=== PATIENT | male | born 1955 | race Caucasian/White ===

== ENCOUNTER 2020-03-10 18:55 | Inpatient (IN) | payer MEDICARE ==
[~2020-03-10] VITALS: Ht 190.5 cm; Wt 124.3 kg
--- NOTE | ~2020-03-10 | EKG ---
[place] [address] ELECTROCARDIOGRAM REPORT Name: YU AGUILAR Room: [address] IN [facility].#: [id number] Admission: 03/10/20 Attend Phys: Junito Zapata Discharge: Date of : 53 Date of Service: 03/10/201943 Report #: [id number] THIS REPORT FOR: //name// [facility] ED Test Date: 2020-03-10 Test Time: 19:44:28 Pat Name: YU AGUILAR Department: Room: [facility] Gender: M Manager Mining: RAHUL : 1955 Requested By: Aashish Wayne Order Number: [id number] MD: Measurements Intervals [place] Rate: 116 P: 68 DE: 185 QRS: 35 QRSD: 96 T: 65 QT: 319 QTc: 444 Interpretive Statements Sinus tachycardia Compared to ECG 05/24/2008 20:01:51 Sinus rhythm no longer present [email or web address] By: 43 43 Epiphany EpiphanyMD /EPI
[2020-03-10 19:00] VITALS: BP 136/77
--- NOTE | 2020-03-10 20:00 | NUR ---
PTS HEARING AIDS X2 PLACED IN A CUP WITH NAME LABEL ON CUP, CELLPONE AND GLASSES ALL PLACED IN A ZIP LOCK BAG AND PLACED WITH BELONGINGS.
[2020-03-10 20:14] LABS: RDW-CV 13.7 % (10.5-14.5)
[2020-03-10 20:19] LABS: HEMOGLOBIN 16.9 gm/dL (14.0-18.0); MCH 28.9 pg (26.0-34.0); MCHC 33.1 g/dL (28.0-37.0); MCV 87.5 fL (80.0-100.0); MPV 8.7 fl. (7.2-11.1); NUCLEATED RBCS 0 /100WBC; PLATELET COUNT* 235 thou/uL (150-400); RBC 5.83 mil/uL (4.50-6.00); WBC 15.9 thou/uL (4.0-11.0)
[2020-03-10 20:21] LABS: CREATININE 1.4 mg/dL (0.6-1.3); POTASSIUM 3.9 mmol/L (3.5-5.1)
[2020-03-10 20:26] LABS: APTT 26.1 Seconds (25.0-31.3); PROTIME 10.7 Seconds (9.20-11.50)
[2020-03-10 20:32] LABS: TOTAL PROTEIN 8.6 g/dL (6.4-8.2)
[2020-03-10 20:49] LABS: BE -3.7 mmol/L (-2 to +3); PO2 105.9 mmHg (75.0-100.0)
[2020-03-10 20:55] LABS: PCO2 55.3 mmHg (35.0-45.0); pH 7.259 (7.340-7.450)
--- NOTE | 2020-03-10 21:52 | NUR ---
UP DATED ON CONDITION. SHE IS AWARE OF VISITATION POLICY AND WAS INSTRUCTED TO CALL WHEN SHE WANTED TO CHECK ON HIM WIFES NAME IS YAIR AGUILAR [phone] [place] AWARE THAT HE WAS COVID + AND HAS GONE HOME TO [place] SELF. INFORMED WOULD CALL IF ANY CHANGES
[2020-03-10 22:04] VITALS: BP 112/69
--- NOTE | 2020-03-10 22:08 | NUR ---
PT HAS COARSE BREATH SOUNDS BILATERALLY AND DIM IN THE BASES. 2 RADIAL PULSES AND 1+ PEDAL PULSES. NGT TO R NARES INTACT AND SECURED AT 60 AT NOSE. WITH BROWN SECRETIONS NOTED. NGT CONNECTED TO LIS. 7.5 ETT INATCT AND SECURED AT 24 AT THE LIP. R JUGULAR TRIPLE LUMEN LINE INTACT. IV TO RIGHT AC INTACT WITH NO REDNESS OR SWELLING NOTED AT THIS TIME. RAMON INTACT AND PATENT DRAINING YELLOW URINE TO BEDSIDE BAG. PT RESTING COMFORTABLY AT THIS TIME.
--- NOTE | 2020-03-10 22:13 | NUR ---
CALLED WITH LIST OF MEDICATIONS, MED REC UPDATED
[2020-03-10] MEDS ORDERED: CLOPIDOGREL75 MG PO (22:14)
[2020-03-10] MEDS ORDERED: LIPITOR40 MG PO (22:14)
[2020-03-10] MEDS ORDERED: CARVEDILOL12.5 MG PO (22:14)
[2020-03-10] MEDS ORDERED: ISOSORBIDE MONO30 M1 PO (22:17)
[2020-03-10] MEDS ORDERED: ASA81BEC PO (22:17)
[2020-03-10 22:23] LABS: ABSOLUTE EOSINOPHILS 0.6 thou/uL (0.0-0.7); ABSOLUTE LYMPHOCYTES 8.3 thou/uL (0.8-5.3); ABSOLUTE MONOCYTES 0.8 thou/uL (0.0-1.2)
[2020-03-10 22:24] LABS: PLATELET ESTIMATE ADEQUATE
[2020-03-11] VITALS (27 sets, daily range): BP systolic 112–141; BP diastolic 56–91
--- NOTE | 2020-03-11 01:36 | NUR ---
NOTIFIED OF PT ICU ROOM NUMBER
--- NOTE | 2020-03-11 05:51 | NUR ---
PT ADMITTED TO ICU AT 0200 FOR RESPIRATORY ARREST IN ED. PT INTUBATED AND SEDATED WITH PROPOFOL DRIP. PT PLACED IN BILATERAL WRIST RESTRAINTS TO MAINTAIN ET TUBE, CENTRAL LINE AND RAMON CATHETER. PT AROUSES TO TOUCH AND ATTEMPTS TO SELF EXTUBATE. PT SINUS RHYTHM DURING SHIFT WITH HEART RATE AND BLOOD PRESSURES WITHIN NORMAL LIMITS. O2 SAT MAINTAINED > 94% ON FIOS 100%. NO ACUTE CHANGES DURING SHIFT, WILL CONTINUE TO MONITOR CLOSELY.
[2020-03-11 08:49] LABS: BE -2.1 mmol/L (-2 to +3); PCO2 37.1 mmHg (35.0-45.0); pH 7.396 (7.340-7.450)
[2020-03-11 10:38] LABS: ABSOLUTE BASOPHILS 0.1 thou/uL (0.0-0.2); ABSOLUTE LYMPHOCYTES 1.9 thou/uL (0.8-5.3); ABSOLUTE MONOCYTES 0.4 thou/uL (0.0-1.2); ABSOLUTE NEUTROPHILS 12.2 thou/uL (1.6-8.1); BASOPHILS 0.5 %; HEMATOCRIT 40.4 % (42.0-52.0); LYMPHOCYTES 12.9 %; MCH 28.5 pg (26.0-34.0); MCHC 33.5 g/dL (28.0-37.0); MCV 84.9 fL (80.0-100.0); MPV 8.3 fl. (7.2-11.1); NUCLEATED RBCS 0 /100WBC; PLATELET COUNT* 173 thou/uL (150-400); POLYS 83.6 %; RBC 4.76 mil/uL (4.50-6.00); RDW-CV 14.1 % (10.5-14.5); WBC 14.6 thou/uL (4.0-11.0)
[2020-03-11 10:44] LABS: HEMOGLOBIN 13.5 gm/dL (14.0-18.0)
[2020-03-11 10:46] LABS: CALCIUM 8.5 mg/dL (8.5-10.1); CREATININE 1.1 mg/dL (0.6-1.3); POTASSIUM 3.9 mmol/L (3.5-5.1)
--- NOTE | 2020-03-11 13:27 | NUR ---
ICU rounds: Covid positive. On Vent, fio2 at 100%. CM spoke with Pt's via phone. Pt tested positive during this hospitalization, tested negative toay. Per . Pt is A&O. Normally active and independent. No DME. No hx of HH or SNF. Pt does not have a PCP, but [facility] CM following.
[2020-03-12] VITALS (21 sets, daily range): BP systolic 111–193; BP diastolic 54–114
[2020-03-12 04:53] LABS: BE -5.6 mmol/L (-2 to +3); PCO2 33.6 mmHg (35.0-45.0); pH 7.365 (7.340-7.450)
[2020-03-12 04:57] LABS: PO2 190.8 mmHg (75.0-100.0)
[2020-03-12 05:12] LABS: HEMATOCRIT 37.7 % (42.0-52.0); HEMOGLOBIN 12.7 gm/dL (14.0-18.0); MCH 28.5 pg (26.0-34.0); MCHC 33.6 g/dL (28.0-37.0); MCV 84.7 fL (80.0-100.0); MPV 8.5 fl. (7.2-11.1); RBC 4.46 mil/uL (4.50-6.00); RDW-CV 13.2 % (10.5-14.5); WBC 16.3 thou/uL (4.0-11.0)
[2020-03-12 05:43] LABS: ALBUMIN 2.7 g/dL (3.4-5.0); CALCIUM 7.9 mg/dL (8.5-10.1); MAGNESIUM 2.5 mg/dL (1.8-2.4); POTASSIUM 3.8 mmol/L (3.5-5.1); TOTAL BILIRUBIN 0.6 mg/dL (<0.1-1.0); TOTAL PROTEIN 6.5 g/dL (6.4-8.2)
--- NOTE | 2020-03-12 06:31 | NUR ---
ASSUMED CARE AT 1900H, ON VENT AT 60% AND TOLERATED. ON PROPOFOL AT 40MICS AND FOLLOWS COMMAND. NO DISTRESS AND NO FEVER NOTED. REORIENT PT. BED CHANGED TO BARIATRIC BED. UPDATE GIVEN TO . CONTINUE MONITORING AND TOWARDS GOALS. FIO2 DECREASE TO 50%.
--- NOTE | 2020-03-12 10:06 | NUR ---
Continue tube feed at 40ml/hr goal of vital high protein. If able to increase water flushes to 150-240ml every 6hr, then add 1 packet of beneprotein powder in each flush
[2020-03-12 12:34] LABS: BE -2.3 mmol/L (-2 to +3); PCO2 39.1 mmHg (35.0-45.0); PO2 116.1 mmHg (75.0-100.0); pH 7.379 (7.340-7.450)
--- NOTE | 2020-03-12 14:04 | NUR ---
ICU rounds: covid positive. Intubated and sedated. IV steroids and abx. Tube feeds.
--- NOTE | 2020-03-12 18:42 | NUR ---
DR. MIGUEL NOTIFIED OF PTS RAPID IMPROVMENT IN RESPIRATORY STATUS. ORDERED GIVEN FOR BREATHING TRIAL. PASS DID VERY WELL. DR NOTIFIED. ORDER GIVEN TO EXTUABTE PT. PT EXTUBATED @1245. PT SOB AROUND 1750. DR. ZAIDI NOTIFIED. ORDER GIVEN FOR XOPENEX. PT STATED TREATMENT HELPED.
[2020-03-12 23:06] LABS: GLYCOHEMOGLOBIN (HGB A1C) 5.7 % (4.8-5.6)
[2020-03-13] VITALS (9 sets, daily range): BP systolic 135–161; BP diastolic 70–86
--- NOTE | 2020-03-13 04:10 | NUR ---
ASSUMED CARE AT 1900H, ON NC AT 4LPM AND TOLERATED. SEEN ON BED WITH NAUSEA, NOT RELEAVED BY MED AND OTHER INTERVENTIONS. HIMS INFORMED WITH ORDERS MADE AND CARRIED OUT. NO ORE NAUSE AND VOMITING, BP WITHIN NORMAL. PT DON'T WANT SLEEPING PILL OR ANXIETY MED, AWAKE THE WHOLE NIGHT. NO DISTRESS AND NO FEVER NOTED. TRANSFERED TO RECLAINING CHAIR LAST NIGHT. UPDATE GIVEN TO . CONTINUE MONITORING AND TOWARDS GOALS.
[2020-03-13 04:30] LABS: BE 0.1 mmol/L (-2 to +3); PCO2 36.5 mmHg (35.0-45.0); pH 7.435 (7.340-7.450)
[2020-03-13 04:32] LABS: PO2 147.2 mmHg (75.0-100.0)
[2020-03-13 05:04] LABS: HEMATOCRIT 40.7 % (42.0-52.0); HEMOGLOBIN 13.8 gm/dL (14.0-18.0); MCH 28.5 pg (26.0-34.0); MCHC 33.8 g/dL (28.0-37.0); MCV 84.4 fL (80.0-100.0); MPV 8.6 fl. (7.2-11.1); RBC 4.83 mil/uL (4.50-6.00); RDW-CV 13.8 % (10.5-14.5)
[2020-03-13 05:23] LABS: ALBUMIN 2.9 g/dL (3.4-5.0); CALCIUM 8.4 mg/dL (8.5-10.1); MAGNESIUM 2.4 mg/dL (1.8-2.4); TOTAL BILIRUBIN 0.8 mg/dL (<0.1-1.0); TOTAL PROTEIN 6.7 g/dL (6.4-8.2)
--- NOTE | 2020-03-13 12:18 | NUR ---
ICU rounds: Extubated yesterday. Doing well. On 2L o2. Up to chair. Covid positive. Tele status
--- NOTE | 2020-03-13 13:45 | NUR ---
transfer from icu to [facility] rm 112 telephone report given prior to arrival patient transferred via good condition with personal belongigns
--- NOTE | 2020-03-13 14:32 | NUR ---
PT SAT IN A RECLINER THIS WHOLE MORNIING, O2 SUPPORT DOWN TO 2L/MIN. VSS TOLERATING WELL. NO NAUSEA/VOMITING, ATE 30-40% OF HIS MEALS. RAMON'S CATH TAKEN OUT AT 1230. REPORT GIVEN TO GEOFFREY GOMEZ.
--- NOTE | 2020-03-13 18:00 | NUR ---
patient up in chair oxygen off o2 sat 96% ra patient instructed to notify nurse if soa call light within reach
[2020-03-14] VITALS: BP 132/76
[2020-03-14 03:57] LABS: HEMOGLOBIN 13.2 gm/dL (14.0-18.0); MCH 28.5 pg (26.0-34.0); MCHC 33.9 g/dL (28.0-37.0); MPV 8.9 fl. (7.2-11.1); RBC 4.64 mil/uL (4.50-6.00); RDW-CV 13.5 % (10.5-14.5); WBC 13.1 thou/uL (4.0-11.0)
[2020-03-14 04:04] VITALS: BP 163/92
[2020-03-14 04:08] LABS: CALCIUM 8.1 mg/dL (8.5-10.1); CREATININE 0.9 mg/dL (0.6-1.3); MAGNESIUM 2.6 mg/dL (1.8-2.4); POTASSIUM 4.1 mmol/L (3.5-5.1); TOTAL BILIRUBIN 0.9 mg/dL (<0.1-1.0); TOTAL PROTEIN 6.8 g/dL (6.4-8.2)
--- NOTE | 2020-03-14 07:02 | NUR ---
PATIENT SLEPT PART OF THE NIGHT. PATIENT HAD NO COMPLAINTS OF PAIN. PATIENT IS MAINTAINING SATS ON ROOM AIR AT 95%. PATIENT WOULD LIKE TO GO HOME TODAY. WILL CONTINUE TO MONITOR.
--- NOTE | 2020-03-14 07:40 | NUR ---
ASSUMED CARE OF PATIENT THIS MORNING FROM NIGHT NURSE. PT IS DOING WELL WITH NO CO OF PAIN OR NAUSEA. HE WAS EDUCATED ON POC, DISEASE PROCESS AND USING THE CALL LIGHT FOR ASSISTANCE. PT IS GOING TO BE DISCHARGED TODAY. WILL CONTINUE TO MONITOR.
[2020-03-14] MEDS ORDERED: PREDNISONE 10 M10 M1 PO (07:47)
[2020-03-14] MEDS ORDERED: LEVOFLOXACIN750 MG PO (07:47)
[2020-03-14 08:00] VITALS: BP 156/88
[2020-03-14] MEDS ORDERED: OCUFLOX5 ML OPHTHALMIC (08:46)
[2020-03-14] MEDS ORDERED: VENTOLIN HFA 1818 GM INH (08:46)
[2020-03-14 10:54] VITALS: BP 156/88
== END 2020-03-14 12:00 | disposition home or self-care (01) | DRG 208 ==
LOC: M.ERS 18:55 → M.ICU 20:06 → M.TBA-ER 20:06 → M.ICU 03-11 01:40 → M.ORTHSURG 03-13 13:57
PROVIDERS: Family Medicine; Internal Medicine; ADMIT Family Medicine; ATTEND Family Medicine
PROC: 5A1945Z Respiratory Ventilation, 24-96 Consecutive Hours (ICD-10-PCS; principal; 2020-03-10)
PROC: 0BH17EZ Insertion of Endotracheal Airway into Trachea, Via Natural or Artificial Opening (ICD-10-PCS; principal; 2020-03-10)
DX: U07.1 COVID-19 (principal); J96.01 Acute respiratory failure with hypoxia; J12.89 Other viral pneumonia; J69.0 Pneumonitis due to inhalation of food and vomit; I10 Essential (primary) hypertension; J45.909 Unspecified asthma, uncomplicated; R73.9 Hyperglycemia, unspecified; I25.10 Atherosclerotic heart disease of native coronary artery without angina pectoris; E66.01 Morbid (severe) obesity due to excess calories; Z68.34 Body mass index [BMI] 34.0-34.9, adult; Z79.82 Long term (current) use of aspirin; Z79.899 Other long term (current) drug therapy; Z28.21 Immunization not carried out because of patient refusal